=== PATIENT | female | born 2000 | race Caucasian/White ===

== ENCOUNTER 2025-04-03 09:15 | Observation (INO) | payer SELFPAY ==
[2025-04-03] MEDS ORDERED: Acetaminophen 325 MG TAB PO PRN (12:13)
[2025-04-03] MEDS ORDERED: Iopamidol 60 ML ONE (13:11)
[2025-04-03] MEDS ORDERED: Lidocaine 2% MPF 10 ML AMP (For Epidural Use) ONE (13:12)
[2025-04-03] MEDS ORDERED: SUGAMMADEX SODIUM 200 MG/2 ML VIAL ONE (13:26)
[2025-04-03 16:40] VITALS: BMI 47.0
[2025-04-03] MEDS: Enoxaparin 40 MG (0.4 mL) SYRINGE SC SCH (21:51)
[2025-04-04 07:11] LABS: #Basophils Less than 0.03 10x3/uL (0.0-0.2); #Eosinophils 0.04 10x3/uL (0.0-0.5); #Monocytes 0.22 10x3/uL (0.0-1.1); #Neutrophils 3.40 10x3/uL (1.5-8.4); %Basophils 0.4 % (0.0-2.0); %Eosinophils 0.8 % (0.0-6.0); %Lymphocytes 27.4 % (18.0-47.0); %Monocytes 4.3 % (0.0-10.0); %Neutrophils 66.9 % (40.0-75.0); Hematocrit 38.3 % (34.9-44.5); Hemoglobin 12.7 g/dL (12.0-15.5); Mean Corpuscular Hemoglobin 30.5 pg (27.0-33.0); Mean Corpuscular Volume 91.8 fL (81.6-98.3); Platelet Count 237 10x3/uL (150-450); Red Blood Cell (RBC) Count 4.17 10x6/uL (3.90-5.03); White Blood Cell (WBC) Count 5.08 10x3/uL (3.5-10.5)
[2025-04-04 07:32] LABS: ALT (SGPT) 321 U/L (Less than 34); AST (SGOT) 215 U/L (11-34); Albumin 3.6 g/dL (3.1-4.5); Alkaline Phosphatase 109 U/L (40-110); Anion Gap 14 mmol/L (10-20); BUN (Urea Nitrogen) 7 mg/dL (7.0-18.7); Bilirubin, Direct 3.8 mg/dL (0.1-0.3); Bilirubin, Total 5.1 mg/dL (0.3-1.2); Calc. Creatinine Clearance 268 mL/min (70-130); Calcium 8.9 mg/dL (7.8-10.44); Carbon Dioxide 22 mmol/L (22-29); Chloride 110 mmol/L (98-107); Globulin 2.8 g/dL (2.4-3.5); Glucose 91 mg/dL (70-105); Lipase 19 U/L (8-78); Potassium 4.0 mmol/L (3.5-5.1); Sodium 142 mmol/L (136-145)
[2025-04-04] MEDS ORDERED: Bupivacaine HCl 0.5%/Epinephrine 1:200,000/PF 30 ml Vial ONE (08:32)
[2025-04-04] MEDS ORDERED: Lidocaine 1% PF 5 ML VIAL ONE (08:33)
[2025-04-04] MEDS ORDERED: Ondansetron PF 4 MG/2 ML Vial ONE ×2 (08:33→11:10)
[2025-04-04] MEDS ORDERED: Ketorolac Tromethamine 30 MG (1 mL) VIAL ONE (08:33)
[2025-04-04] MEDS ORDERED: PROPOFOL 40 ML ONE (08:34)
[2025-04-04] MEDS ORDERED: CEFAZOLIN 2 GM VIAL ONE (08:45)
[2025-04-04] MEDS ORDERED: PHENYLEPHRINE-NS 100 MCG/ML 10 ML SYRINGE ONE (09:27)
[2025-04-04] MEDS ORDERED: SUGAMMADEX SODIUM 200 MG/2 ML VIAL ONE (10:16)
[2025-04-04] MEDS ORDERED: HYDROmorphone 0.5 MG/0.5 ML SYRINGE ONE ×3 (10:48→11:18)
[2025-04-04] MEDS: HYDROcodone/Acetaminophen 10/325 mg Tablet PO PRN ×2 (12:49→16:45)
[2025-04-05] MEDS: HYDROcodone/Acetaminophen 10/325 mg Tablet PO SCH (03:37)
[2025-04-05 04:51] LABS: ALT (SGPT) 408 U/L (Less than 34); AST (SGOT) 310 U/L (11-34); Albumin 3.5 g/dL (3.1-4.5); Alkaline Phosphatase 96 U/L (40-110); Anion Gap 14 mmol/L (10-20); BUN (Urea Nitrogen) 6 mg/dL (7.0-18.7); Bilirubin, Total 4.6 mg/dL (0.3-1.2); Calc. Creatinine Clearance 260 mL/min (70-130); Calcium 8.5 mg/dL (7.8-10.44); Carbon Dioxide 23 mmol/L (22-29); Chloride 108 mmol/L (98-107); Globulin 2.8 g/dL (2.4-3.5); Glucose 98 mg/dL (70-105); Potassium 3.6 mmol/L (3.5-5.1); Sodium 141 mmol/L (136-145)
[2025-04-05 04:53] LABS: ALT (SGPT) 409 U/L (Less than 34); AST (SGOT) 314 U/L (11-34); Albumin 3.5 g/dL (3.1-4.5); Alkaline Phosphatase 96 U/L (40-110); Bilirubin, Direct 3.6 mg/dL (0.1-0.3); Bilirubin, Total 4.6 mg/dL (0.3-1.2)
[2025-04-05] MEDS: Ondansetron PF 4 MG/2 ML Vial IVP PRN (06:55)
[2025-04-05 11:51] VITALS: BP 142/77; TEMP 97.9
[2025-04-05 12:32] LABS: ALT (SGPT) 408 U/L (Less than 34); AST (SGOT) 299 U/L (11-34); Albumin 3.3 g/dL (3.1-4.5); Alkaline Phosphatase 91 U/L (40-110); Bilirubin, Direct 3.3 mg/dL (0.1-0.3); Bilirubin, Total 4.5 mg/dL (0.3-1.2)
== END 2025-04-05 16:07 | disposition home or self-care (01) ==
LOC: CSHERS 09:15 → CSHERHOLD 11:33 → CSHTELE 16:29
PROVIDERS: ADMIT Student in an Organized Health Care Education/Training Program; ATTEND Family Medicine
PROC: BF00YZZ Plain Radiography of Bile Ducts using Other Contrast (ICD-10-PCS; principal; 2025-04-04)
DX: K80.10 Calculus of gallbladder with chronic cholecystitis without obstruction (principal); E66.01 Morbid (severe) obesity due to excess calories; Z68.42 Body mass index [BMI] 45.0-49.9, adult
CPT/HCPCS: 36415; 80053; 82248; 83690; 85025; 88304; 96372; 99285; C1725; C1776; C1889; G0378; J1100; J1171; J1650; J1885; J2250; J2270; J2405; J2550; J2704; J3010; J7120; Q9967; S2900